=== PATIENT | male | born 1995 | race Caucasian/White ===

== ENCOUNTER 2020-07-17 16:50 | Inpatient (IN) | payer MEDICAID ==
[~2020-07-17] VITALS: Ht 177.8 cm; Wt 75.9 kg
[2020-07-17 19:04] VITALS: BP 123/87
[2020-07-17 20:00] VITALS: BP 123/87
[2020-07-17] MEDS ORDERED: INFLUENZA VIRUS VACCINE QVS 2020-21 (6MO+)/PF 60 MCG/0.5 ML SYRINGE IM ONE (20:30)
[2020-07-17 21:00] VITALS: BP 149/90
[2020-07-17] MEDS: ZOLPIDEM TARTRATE 10 MG TABLET PO PRN (21:01)
[2020-07-17] MEDS: LORazepam 2 MG TABLET PO PRN (21:07)
[2020-07-17 22:00] VITALS: BP 138/85
[2020-07-17 23:00] VITALS: BP 121/72
[2020-07-18] VITALS (10 sets, daily range): BP systolic 113–134; BP diastolic 68–84
[2020-07-18] MEDS: LORazepam 2 MG TABLET PO PRN ×2 (08:11→16:36)
[2020-07-18] MEDS ORDERED: ONDANSETRON HCL 4 MG TABLET PO PRN (08:15)
[2020-07-18] MEDS ORDERED: ALBUTEROL SULFATE HFA 90 MCG/PUFF 8 GM INHALER IH PRN (08:15)
[2020-07-18] MEDS ORDERED: PETROLATUM,WHITE 28 GM JELLY TP PRN (08:15)
[2020-07-18] MEDS ORDERED: MAG HYDROX/AL HYDROX/SIMETH ES 30 ML SUSPENSION UDCUP PO PRN ×2 (08:15→11:30)
[2020-07-18] MEDS ORDERED: GuaiFENesin/D-METHORPHAN [SUGAR-FREE] 200-20MG/10 ML SYRUP UDCUP PO PRN (08:15)
[2020-07-18] MEDS ORDERED: NICOTINE 14 MG/24 HOUR PATCH TD PRN (08:15)
[2020-07-18] MEDS ORDERED: DOCUSATE SODIUM 100 MG CAPSULE PO PRN (08:15)
[2020-07-18] MEDS ORDERED: CloNIDine HCL 0.1 MG TABLET PO PRN ×4 (08:15→13:00)
[2020-07-18] MEDS ORDERED: MAGNESIUM HYDROXIDE SUSPENSION 30 ML UDCUP PO PRN (08:15)
[2020-07-18] MEDS ORDERED: IBUPROFEN 400 MG TABLET PO PRN (08:15)
[2020-07-18] MEDS ORDERED: LOPERAMIDE HCL 2 MG CAPSULE PO PRN (08:15)
[2020-07-18] MEDS ORDERED: ACETAMINOPHEN 325 MG TABLET PO PRN (08:15)
[2020-07-18] MEDS ORDERED: HydrOXYzine PAMOATE 50 MG CAPSULE PO PRN ×2 (11:30)
[2020-07-18] MEDS ORDERED: IBUPROFEN 600 MG TABLET PO PRN ×2 (11:30)
[2020-07-18] MEDS ORDERED: CloNIDine HCL 0.1 MG TABLET PO SCH ×2 (12:00)
[2020-07-18] MEDS: HALOPERIDOL 5 MG TABLET PO PRN (16:36)
[2020-07-18] MEDS: RisperiDONE 1 MG TABLET PO SCH (16:36)
[2020-07-18] MEDS: CloNIDine HCL 0.1 MG TABLET PO SCH ×2 (16:36→21:00)
[2020-07-18] MEDS: ZOLPIDEM TARTRATE 10 MG TABLET PO PRN (21:00)
[2020-07-19 04:01] VITALS: BP 112/76
[2020-07-19] MEDS: CloNIDine HCL 0.1 MG TABLET PO SCH ×4 (06:01→20:56)
[2020-07-19 08:07] VITALS: BP 115/73
[2020-07-19] MEDS: RisperiDONE 1 MG TABLET PO SCH ×2 (08:11→16:26)
[2020-07-19] MEDS: LORazepam 2 MG TABLET PO PRN ×3 (08:11→17:12)
[2020-07-19 09:21] VITALS: BP 115/73
[2020-07-19 16:10] VITALS: BP 104/68
[2020-07-19 16:34] VITALS: BP 104/68
[2020-07-20] VITALS (7 sets, daily range): BP systolic 103–118; BP diastolic 63–66
[2020-07-20] MEDS: CloNIDine HCL 0.1 MG TABLET PO SCH ×4 (06:17→21:10)
[2020-07-20] MEDS: RisperiDONE 1 MG TABLET PO SCH ×2 (08:37→16:15)
[2020-07-20] MEDS: LORazepam 2 MG TABLET PO PRN ×2 (11:10→16:15)
[2020-07-20] MEDS: HALOPERIDOL 5 MG TABLET PO PRN ×2 (11:10→16:15)
[2020-07-21 01:47] VITALS: BP 132/85
[2020-07-21] MEDS: CloNIDine HCL 0.1 MG TABLET PO SCH ×4 (06:23→21:22)
[2020-07-21] MEDS: RisperiDONE 1 MG TABLET PO SCH ×2 (08:47→16:55)
[2020-07-21 13:25] VITALS: BP 136/79
[2020-07-21] MEDS: HALOPERIDOL 5 MG TABLET PO PRN (14:12)
[2020-07-21] MEDS: LORazepam 2 MG TABLET PO PRN ×2 (14:12→21:22)
[2020-07-21 16:17] VITALS: BP 111/62
[2020-07-21 16:18] VITALS: BP 111/62
[2020-07-21 21:30] VITALS: BP 122/71
[2020-07-22 05:39] VITALS: BP 105/68
[2020-07-22] MEDS: CloNIDine HCL 0.1 MG TABLET PO SCH ×4 (06:09→21:02)
[2020-07-22 06:45] VITALS: BP 108/68
[2020-07-22 08:37] VITALS: BP 117/74
[2020-07-22] MEDS: RisperiDONE 1 MG TABLET PO SCH ×2 (08:46→16:42)
[2020-07-22 10:10] VITALS: BP 115/66
[2020-07-22] MEDS: LORazepam 2 MG TABLET PO PRN ×2 (12:08→21:03)
[2020-07-22 19:09] VITALS: BP 121/78
[2020-07-22 20:00] VITALS: BP 114/76
[2020-07-22] MEDS: ZOLPIDEM TARTRATE 10 MG TABLET PO PRN (21:02)
[2020-07-23 00:59] VITALS: BP 112/62
[2020-07-23] MEDS: LORazepam 2 MG TABLET PO PRN (01:02)
[2020-07-23 05:55] VITALS: BP 119/68
[2020-07-23 05:56] VITALS: BP 96/58
[2020-07-23] MEDS: CloNIDine HCL 0.1 MG TABLET PO SCH ×2 (05:56→12:00)
[2020-07-23 05:58] VITALS: BP 98/58
[2020-07-23 08:06] VITALS: BP 112/75
[2020-07-23] MEDS: RisperiDONE 1 MG TABLET PO SCH (08:51)
[2020-07-23] MEDS ORDERED: MULTIVITAMINS WITH MINERALS, THERAPEUTIC TABLET PO SCH (09:00)
[2020-07-23] MEDS ORDERED: RISP1TAB89 PO (10:14)
== END 2020-07-23 12:00 | disposition home or self-care (01) | DRG 750 ==
LOC: B3A 20:03
PROVIDERS: ADMIT Psychiatry & Neurology Child & Adolescent Psychiatry; ATTEND Psychiatry & Neurology Child & Adolescent Psychiatry
DX: F25.1 Schizoaffective disorder, depressive type (principal); F10.10 Alcohol abuse, uncomplicated; Z59.0 Homelessness; Z28.21 Immunization not carried out because of patient refusal; Z79.899 Other long term (current) drug therapy
CPT/HCPCS: 87081; Z7610

== ENCOUNTER 2024-06-28 23:04 | Inpatient (IN) | payer MEDICAID ==
[~2024-06-28] VITALS: Ht 177.8 cm; Wt 76.5 kg
[~2024-06-28 23:04] MED LIST: RISP1TAB89 PO
[2024-06-29] VITALS (10 sets, daily range): BP systolic 125–146; BP diastolic 68–90; PULSE 65–77; RESP 16–19; TEMP 96.6–99; O2SAT 96–100
[2024-06-29 01:04] LABS: COVID AG,FIA SOURCE NASAL SWAB
[2024-06-29 01:24] LABS: SARS-COV2 (COVID) ANTIGEN,FIA Negative (Negative)
[2024-06-29] MEDS: INFLUENZA VIRUS VACCINE TVS (6MO+) 2024-25/PF 45 MCG/0.5 ML SYRINGE IM. ONE (06:45)
[2024-06-29] MEDS ORDERED: LOPERAMIDE HCL 2 MG CAPSULE PO PRN (07:30)
[2024-06-29] MEDS ORDERED: NICOTINE 14 MG/24 HOUR PATCH TD PRN (07:30)
[2024-06-29] MEDS ORDERED: ACETAMINOPHEN 325 MG TABLET PO PRN (07:30)
[2024-06-29] MEDS ORDERED: GuaiFENesin/D-METHORPHAN [SUGAR-FREE] 200-20MG/10 ML SYRUP UDCUP PO PRN (07:30)
[2024-06-29] MEDS ORDERED: DOCUSATE SODIUM 100 MG CAPSULE PO PRN (07:30)
[2024-06-29] MEDS ORDERED: MAGNESIUM HYDROXIDE SUSPENSION 30 ML UDCUP PO PRN (07:30)
[2024-06-29] MEDS ORDERED: ALBUTEROL SULFATE HFA 90 MCG/PUFF 8 GM INHALER IH PRN (07:30)
[2024-06-29] MEDS ORDERED: PETROLATUM,WHITE 28 GM JELLY TP PRN (07:30)
[2024-06-29] MEDS ORDERED: IBUPROFEN 400 MG TABLET PO PRN (07:30)
[2024-06-29] MEDS ORDERED: CloNIDine HCL 0.1 MG TABLET PO PRN (07:30)
[2024-06-29] MEDS: MAG HYDROX/ALUMINUM HYD/SIMETH ES 30 ML SUSPENSION UDCUP PO PRN (08:57)
[2024-06-29] MEDS: HALOPERIDOL 5 MG TABLET PO PRN (12:47)
[2024-06-29] MEDS: LORazepam 2 MG TABLET PO PRN (12:47)
[2024-06-29] MEDS: RisperiDONE 1 MG TABLET PO SCH (16:31)
[2024-06-30] VITALS (7 sets, daily range): BP systolic 129–143; BP diastolic 70–89; PULSE 77–92; RESP 16–20; TEMP 97–97.8; O2SAT 97–98
[2024-06-30] MEDS: ONDANSETRON 4 MG TABLET PO PRN (00:34)
[2024-06-30] MEDS: ZOLPIDEM TARTRATE 10 MG TABLET PO PRN (01:45)
[2024-06-30 08:52] LABS: BASOPHILS % (AUTO) 0.2 % (0.0-2.0); EOSINOPHILS % (AUTO) 0 % (1.0-6.0); HEMATOCRIT 42.4 % (41-53); HEMOGLOBIN 14.9 g/dL (13.5-17.5); LYMPHOCYTES # (AUTO) 2.3 K/uL (1.0-4.8); MEAN CORPUSCULAR HEMOGLOBIN 26.3 pg (26.0-34.0); MEAN CORPUSCULAR HGB CONC 35.1 G/dL (31.0-37.0); MEAN CORPUSCULAR VOLUME 75 fL (80-100); MONOCYTES # (AUTO) 0.8 K/uL (0.1-1.0); NEUTROPHILS # (AUTO) 7.8 K/uL (1.8-7.7); NEUTROPHILS % (AUTO) 71.8 % (40.0-70.0); PLATELET COUNT (AUTO) 301 K/uL (150-450); RED BLOOD CELL COUNT(AUTO) 5.65 MIL/uL (4.50-5.90); WHITE BLOOD COUNT (AUTO) 10.9 K/uL (4.5-11.0)
[2024-06-30 09:03] LABS: ANION GAP 7 mmol/L (8-16); CALCIUM, TOTAL 8.8 mg/dL (8.8-10.5); CARBON DIOXIDE 29 mmol/L (22-29); CHLORIDE 100 mmol/L (98-107); CREATININE 1.05 mg/dL (0.60-1.30); GLOMERULAR FILTR. RATE CALC > 60 mL/min (>60); GLUCOSE,RANDOM 117 mg/dL (70-110); POTASSIUM 3.5 mmol/L (3.5-5.1); SODIUM SERUM 135 mmol/L (136-145); UREA NITROGEN, BLOOD 18 mg/dL (7-18)
[2024-06-30 09:18] LABS: ALCOHOL, BLOOD (SERUM) < 3 mg/dL (0-10)
[2024-06-30 10:34] LABS: RBC MORPHOLOGY COMMENT ABNORMAL RBC MORPH
[2024-06-30] MEDS: ONDANSETRON HCL 4 MG/2 ML VIAL IM PRN (19:44)
== END 2024-07-01 03:28 | disposition short-term general hospital (02) | DRG 750 ==
LOC: EMS 23:05 → B2S 06-29 05:03
PROVIDERS: ADMIT Psychiatry & Neurology Child & Adolescent Psychiatry; ATTEND Psychiatry & Neurology Child & Adolescent Psychiatry
PROC: GZ56ZZZ Individual Psychotherapy, Supportive (ICD-10-PCS; principal; 2024-06-29)
DX: F25.1 Schizoaffective disorder, depressive type (principal); E87.1 Hypo-osmolality and hyponatremia; R45.851 Suicidal ideations; F11.10 Opioid abuse, uncomplicated; Z20.822 Contact with and (suspected) exposure to COVID-19; I10 Essential (primary) hypertension; F41.9 Anxiety disorder, unspecified; F19.10 Other psychoactive substance abuse, uncomplicated; G47.00 Insomnia, unspecified; Z87.891 Personal history of nicotine dependence
CPT/HCPCS: 80048; 85025; 99285; G0480; J2405; Q0162